=== PATIENT | female | born 1955 | race American Indian/Alaskan Native ===

== ENCOUNTER 2016-05-04 23:43 | Emergency (ER) | payer MEDICARE, OTHER ==
[2016-05-05] MEDS ORDERED: TYLENOL PO ONE ×2 (00:41→00:52)
[2016-05-05] MEDS ORDERED: XYLOCAINE 1% 20 mL INFILTRATI ONE (00:42)
[2016-05-05] MEDS ORDERED: BOOSTRIX IM ONE (00:42)
--- NOTE | 2016-05-05 00:44 | Emergency Department Report ---
HPI - General Chief Complaint: Fall Time Seen by Provider: 05/05/16 00:27 - HPI HPI: This is a 60-year-old Afro-Italian female who presents to the emergency department, driven in by her daughter, with complaint of a ground-level fall that occurred this evening around 10 PM. The patient had a mechanical fall and denies falling due to weakness or passing out. She did hit her head and caused a laceration just over the left eye in the eyebrow region but she denies any loss of consciousness. She complains of a slight headache. She denies any vision change, dizziness, nausea, vomiting. She did not take anything for symptoms prior to presentation. She has a history of CHF, CVA with left-sided weakness. Her primary care doctor is a Dr. Edwards. ED Past Medical Hx - Past Medical History Previous Medical History?: Yes Hx CVA: Yes (2010 left side wkness) Hx Congestive Heart Failure: Yes - Surgical History Past Surgical History?: Yes Additional Surgical History: hysterectomy. colostomy - Social History Smoking Status: Former Smoker Substance Use Type: None - Medications Home Medications: Home Medications Medication Instructions Recorded Confirmed Last Taken Type Aspirin EC [Aspirin Enteric Coated 81 mg PO QDAY 05/05/16 05/05/16 05/04/16 History TAB] AtorvaSTATin [Lipitor] 10 mg PO DAILY 05/05/16 05/05/16 05/04/16 History Calcium Carbonate/Vitamin D3 1 each PO BID 05/05/16 05/05/16 05/04/16 History [Calcium 600-Vit D3 200 Tablet] Ergocalciferol (Vitamin D2) 50,000 unit PO ONCE 05/05/16 05/05/16 05/04/16 History [Vitamin D] Folic Acid 0.4 mg PO QDAY 05/05/16 05/05/16 05/04/16 History Metoprolol [Lopressor] 12.5 mg PO DAILY 05/05/16 05/05/16 05/04/16 History Primidone [Mysoline] 50 mg PO TID 05/05/16 05/05/16 05/04/16 History Sertraline [Zoloft] 100 mg PO QDAY 05/05/16 05/05/16 05/04/16 History Ziprasidone HCl [Geodon] 80 mg PO DAILY 05/05/16 05/05/16 05/04/16 History ED Review of Systems ROS: Stated complaint: LACERATION TO HEAD Other details as noted in HPI Comment: All other systems reviewed and negative Constitutional: denies: chills, fever Eyes: denies: eye pain, eye discharge, vision change ENT: denies: ear pain, throat pain Respiratory: denies: cough, shortness of breath, wheezing Cardiovascular: denies: chest pain, palpitations Gastrointestinal: denies: abdominal pain, nausea, diarrhea Genitourinary: denies: urgency, dysuria, discharge Musculoskeletal: denies: back pain, joint swelling, arthralgia Skin: other (left eyebrow laceration). denies: rash, lesions Neurological: headache. denies: numbness, paresthesias Physical Exam - Physical Exam Vital Signs: Vital Signs 05/05/16 05/05/16 00:18 00:34 Temperature 97.5 F L Pulse Rate 62 Respiratory 18 18 Rate Blood Pressure 121/80 [Left] O2 Sat by Pulse 97 97 Oximetry Physical Exam: GENERAL: The patient is well-developed well-nourished. HEENT: Normocephalic. Atraumatic. Extraocular motions are intact. Patient has moist mucous membranes. Pupils equal reactive to light bilaterally. NECK: Supple. Trachea is midline. CHEST/LUNGS: Clear to auscultation. There is no respiratory distress noted. HEART/CARDIOVASCULAR: Regular. There is no tachycardia. There is no gallop rub or murmur. ABDOMEN: Abdomen is soft, nontender. Patient has normal bowel sounds. There is no abdominal distention. SKIN: There is a less than 1 cm laceration to the left eyebrow. It is linear, superficial, without any foreign body seen. No current bleeding. NEURO: The patient is awake, alert. The patient is cooperative. The patient has no acute focal neurologic deficits. MUSCULOSKELETAL: There is no tenderness or deformity. Cap refill less than 2 seconds. ED Course Vital Signs 05/05/16 05/05/16 00:18 00:34 Temperature 97.5 F L Pulse Rate 62 Respiratory 18 18 Rate Blood Pressure 121/80 [Left] O2 Sat by Pulse 97 97 Oximetry - Laceration /Wound Repair Left Face Wound Location: face (left eyebrow) Wound Length (cm): 1 Wound's Depth, Shape: superficial, linear Wound Explored: clean Anesthesia: 1% Lidocaine Volume Anesthetic (ccs): 1 Wound Repaired With: sutures Suture Size/Type: 6:0, proline Number of Sutures: 2 Layer Closure?: No Sterile Dressing Applied?: No ED Medical Decision Making - Radiology Data Radiology results: report reviewed CT of the head does not show any acute process including no hemorrhage, mass, shift, diffuse edema or skull fracture. - Medical Decision Making 60-year-old female presents to the emergency department after a mechanical fall with a left eyebrow laceration. A CT of the head was done that did not show any bleed, shift, mass, fracture or any acute process. Laceration was closed with 2 simple interrupted sutures without any complications. Patient has no other further complaints of discomfort from her fall. Discussed the suture removal, monitoring for wound infection, and all other discharge instructions with the patient and her daughter. They will follow up with the PCP in the next few days but will return to the emergency department with any acute distress or signs of infection. Tetanus was updated. - Differential Diagnosis laceration, facial fracture, brain bleed, skull fracture, contusion Critical Care Time: No Critical care attestation.: If time is entered above; I have spent that time in minutes in the direct care of this critically ill patient, excluding procedure time. ED Disposition Clinical Impression: Facial laceration Qualifiers: Encounter type: initial encounter Qualified Code(s): S01.81XA - Laceration without foreign body of other part of head, initial encounter Fall Qualifiers: Encounter type: initial encounter Qualified Code(s): W19.XXXA - Unspecified fall, initial encounter Headache Qualifiers: Headache type: unspecified Headache chronicity pattern: acute headache Intractability: not intractable Qualified Code(s): R51 - Headache Disposition: DISCHARGED TO HOME OR SELFCARE Is pt being admited?: No Condition: Good Instructions: Suture Care (ED), Fall Prevention for Older Adults (ED) Additional Instructions: Please follow-up with your primary care doctor in the near future for a wound check and the sutures will need to be removed in 1 week. Return to the emergency department with any worsening of your symptoms or any acute distress. Referrals: PRIMARY CARE, [Primary Care Provider] - 3-5 Days Time of Disposition: 02:23
--- NOTE | 2016-05-05 01:52 | Cat Scan Report ---
FINAL REPORT PROCEDURE: CT HEAD/BRAIN WO CON TECHNIQUE: Computerized tomography of the head was performed without contrast material. HISTORY: Fall, headache COMPARISON: No prior studies are available for comparison. FINDINGS: Skull and scalp: Normal. Paranasal sinuses: Normal. Ventricles and subarachnoid spaces: Normal. Cerebrum: No evidence of hemorrhage, acute infarction or mass. Mild atrophy is noted.. Cerebellum and brainstem: No evidence of hemorrhage, acute infarction or mass. Vasculature: Normal. Comments: None. IMPRESSION: There is no evidence of an acute intracranial process.
[2016-05-05 02:44] VITALS: BP 122/77
== END 2016-05-05 02:42 | disposition home or self-care (01) ==
LOC: ED 23:43
DX: S01.81XA Laceration without foreign body of other part of head, initial encounter (principal); R51 Headache; I63.9 Cerebral infarction, unspecified; I50.9 Heart failure, unspecified; Z87.891 Personal history of nicotine dependence; Z79.82 Long term (current) use of aspirin; W01.198A Fall on same level from slipping, tripping and stumbling with subsequent striking against other object, initial encounter; Y93.9 Activity, unspecified; Y99.9 Unspecified external cause status; Y92.89 Other specified places as the place of occurrence of the external cause
CPT/HCPCS: 70450; 90471; 90715